=== PATIENT | male | born 1955 | race Caucasian/White ===

== ENCOUNTER 2018-02-03 17:00 | Emergency (ER) | payer SELFPAY ==
[~2018-02-03] VITALS: Ht 180.3 cm; Wt 134.0 kg
[2018-02-03] MEDS ORDERED: DEXAMETHASONE 10 MG/ML VIAL IV ONE (19:00)
[2018-02-03] MEDS ORDERED: CEFTRIAXONE 1 G PREMIX 50 ML IV ONE ×2 (19:00)
[2018-02-03] MEDS ORDERED: SODIUM CHLORIDE 0.9% 1000ML BAG (SEPSIS BOLUS) IV ONE (19:00)
[2018-02-03 19:36] LABS: BASOPHILS % 0.8 % (0.0-2.0); EOSINOPHILS % 2.7 % (0.0-5.0); HEMATOCRIT. 38.4 % (42.0-52.0); HEMOGLOBIN. 13.2 g/dL (14.0-18.0); LYMPHOCYTES % 14.2 % (20.0-50.0); MEAN CORPUSCULAR HEMOGLOBIN 29.1 pg (28.0-32.0); MEAN CORPUSCULAR VOLUME 84.8 fL (80.0-94.0); MEAN PLATELET VOLUME 7.4 fl (7.4-10.4); MONOCYTES % 11.7 % (2.0-8.0); NEUTROPHILS % 70.6 % (40.0-76.0); PLATELET 299 x1000/uL (130-400); RED BLOOD CELL COUNT 4.53 mill/uL (4.7-6.1); RED CELL DISTRIBUTION WIDTH 13.7 % (11.6-14.6)
[2018-02-03 19:40] LABS: CHLORIDE 111 mEq/L (98-107)
[2018-02-03 19:42] LABS: INR 1.1
[2018-02-03] MEDS ORDERED: IOHEXOL-300 100 ML BOTTLE ONE (21:30)
[2018-02-03 23:20] VITALS: BP 132/77
== END 2018-02-03 23:47 | disposition home or self-care (01) ==
LOC: ER 18:58
DX: J36 Peritonsillar abscess (principal); Z98.890 Other specified postprocedural states
CPT/HCPCS: 36415; 70491; 80053; 83605; 85025; 85610; 87040; 96365; 96375; 99285; J0696; J1100; J7030; Q9967; Z7610